=== PATIENT | female | born 1990 | race Caucasian/White ===

== ENCOUNTER 2020-04-28 14:50 | Emergency (ER) | payer MEDICAID ==
[~2020-04-28] VITALS: Ht 162.6 cm; Wt 90.0 kg
[2020-04-28 14:54] VITALS: BP 113/79
[2020-04-28] MEDS: ACETAMINOPHEN 325MG TABLET PO STA (15:59)
[2020-04-28 16:06] LABS: CLARITY URINE TURBID (CLEAR); COLOR URINE RED (YELLOW); KETONES URINE TRACE (NEGATIVE); LEUKOCYTE ESTERASE URINE 3+ (NEGATIVE); NITRITE URINE POSITIVE (NEGATIVE); OCCULT BLOOD URINE 3+ (NEGATIVE); PROTEIN URINE 2+ (NEGATIVE); SPECIFIC GRAVITY URINE 1.016 (1.005-1.030)
[2020-04-28 16:08] LABS: BASOPHILS % 0.7 % (0.0-2.0); EOSINOPHILS % 0.6 % (0.0-5.0); HEMATOCRIT. 35.9 % (36.0-48.0); HEMOGLOBIN. 12.1 g/dL (12.0-16.0); LYMPHOCYTES % 21.7 % (20.0-50.0); MEAN CORPUSCULAR HEMOGLOBIN 30.2 pg (28.0-32.0); MEAN CORPUSCULAR VOLUME 89.4 fL (81.0-99.0); MONOCYTES % 9.3 % (2.0-8.0); NEUTROPHILS % 67.7 % (40.0-76.0); PLATELET 230 x1000/uL (130-400); RED BLOOD CELL COUNT 4.01 mill/uL (4.2-5.4); RED CELL DISTRIBUTION WIDTH 13.9 % (11.6-14.6)
[2020-04-28 16:25] LABS: CHLORIDE 105 mEq/L (98-107)
[2020-04-28 16:37] LABS: B-HCG QUANTITATIVE < 1 mIU/mL (<3)
[2020-04-28] MEDS ORDERED: IBUP-2029 MT (17:12)
[2020-04-28] MEDS ORDERED: NITR-87 MT (17:17)
[2020-04-28] MEDS ORDERED: TRAMADOL 50MG TABLET PO ONE (18:00)
== END 2020-04-28 18:04 | disposition home or self-care (01) ==
LOC: ER 14:50
DX: N93.8 Other specified abnormal uterine and vaginal bleeding (principal); N39.0 Urinary tract infection, site not specified; R10.2 Pelvic and perineal pain
CPT/HCPCS: 36415; 76830; 76856; 80053; 81003; 81025; 84702; 85025; 86850; 86900; 87077; 87186; 93005; 99285

== ENCOUNTER 2020-06-23 14:06 | Emergency (ER) | payer SELFPAY ==
[~2020-06-23] VITALS: Ht 162.6 cm; Wt 91.0 kg
[~2020-06-23 14:06] MED LIST: IBUP-2029 MT; NITR-87 MT
[2020-06-23] MEDS ORDERED: IBUPROFEN 600MG TABLET PO ONE (16:15)
[2020-06-23] MEDS ORDERED: IBUP-2029 MT (16:42)
[2020-06-23 16:52] VITALS: BP 124/88
== END 2020-06-23 17:15 | disposition home or self-care (01) ==
LOC: ER 14:06
DX: S63.611A Unspecified sprain of left index finger, initial encounter (principal); S63.602A Unspecified sprain of left thumb, initial encounter; W22.8XXA Striking against or struck by other objects, initial encounter; Y93.89 Activity, other specified; Y92.018 Other place in single-family (private) house as the place of occurrence of the external cause
CPT/HCPCS: 73130; 81025; 99283

== ENCOUNTER 2021-05-15 21:04 | Inpatient (IN) | payer MEDICAID ==
[~2021-05-15] VITALS: Ht 162.6 cm; Wt 97.5 kg
[2021-05-15] MEDS ORDERED: MORPHINE SULFATE 4 MG/ML CPJ (NOT FOR IM USE) IV STA (22:26)
[2021-05-15] MEDS ORDERED: ONDANSETRON HCL 4MG/2ML INJ IV STA (22:26)
[2021-05-15] MEDS ORDERED: SODIUM CHLORIDE 0.9% 1,000 ML IV ONE (22:30)
[2021-05-16 00:26] LABS: BASOPHILS % 0.4 % (0.0-2.0); HEMATOCRIT. 37.1 % (36.0-48.0); HEMOGLOBIN. 12.4 g/dL (12.0-16.0); MEAN CORPUSCULAR HEMOGLOBIN 28.9 pg (28.0-32.0); MEAN CORPUSCULAR VOLUME 86.6 fL (81.0-99.0); MEAN PLATELET VOLUME 9.1 fl (7.4-10.4); MONOCYTES % 5.2 % (2.0-8.0); NEUTROPHILS % 81.4 % (40.0-76.0); PLATELET 248 x1000/uL (130-400); RED BLOOD CELL COUNT 4.28 mill/uL (4.2-5.4); RED CELL DISTRIBUTION WIDTH 13.7 % (11.6-14.6)
[2021-05-16 00:31] LABS: CLARITY URINE CLOUDY (CLEAR); COLOR URINE YELLOW (YELLOW); KETONES URINE NEGATIVE (NEGATIVE); LEUKOCYTE ESTERASE URINE 3+ (NEGATIVE); NITRITE URINE NEGATIVE (NEGATIVE); OCCULT BLOOD URINE NEGATIVE (NEGATIVE); PROTEIN URINE TRACE (NEGATIVE); SPECIFIC GRAVITY URINE 1.021 (1.005-1.030)
[2021-05-16 00:34] LABS: CHLORIDE 104 mEq/L (98-107)
[2021-05-16] MEDS ORDERED: KETOROLAC 30MG/ML VIAL IV ONE (00:45)
[2021-05-16 00:57] LABS: HCG SCREEN NEGATIVE
[2021-05-16] MEDS ORDERED: CEFTRIAXONE 1 G PREMIX 50 ML IV ONE (02:00)
[2021-05-16] MEDS ORDERED: MORPHINE SULFATE 4 MG/ML CPJ (NOT FOR IM USE) IV ONE (02:15)
[2021-05-16] MEDS ORDERED: IOHEXOL-300 100 ML BOTTLE ONE (02:40)
[2021-05-16] MEDS ORDERED: MORPHINE SULFATE 2 MG/ML CPJ (NOT FOR IM USE) IV ONE (04:15)
[2021-05-16] MEDS ORDERED: SKIN ADHESIVE 0.7 GM EA TOP ONE (08:00)
[2021-05-16] MEDS ORDERED: BUPIVACAINE HCL 0.5% (5MG/ML) 50ML ONE (08:00)
[2021-05-16] MEDS ORDERED: MORPHINE SULFATE 2 MG/ML CPJ (NOT FOR IM USE) IV NR (08:45)
[2021-05-16] MEDS ORDERED: MORPHINE SULFATE 2 MG/ML CPJ (NOT FOR IM USE) IV PRN (09:30)
[2021-05-16] MEDS ORDERED: SUCCINYLCHOLINE CHLORIDE 200MG/10ML IV ONE (09:37)
[2021-05-16] MEDS ORDERED: MIDAZOLAM HCL 2 MG/2 ML VIAL ONE (09:37)
[2021-05-16] MEDS ORDERED: FENTANYL CITRATE/PF 50MCG/ML 2ML VIAL ONE (09:37)
[2021-05-16] MEDS ORDERED: PROPOFOL 200MG/20ML VIAL IV ONE (09:37)
[2021-05-16] MEDS ORDERED: LIDOCAINE HCL/PF 1% 10 MG/ML 5ML VIAL ONE (09:37)
[2021-05-16] MEDS ORDERED: ROCURONIUM BROMIDE 10MG/ML VIAL 5ML IV ONE (09:38)
[2021-05-16] MEDS ORDERED: CEFAZOLIN SODIUM 1000MG/VIAL ONE (10:19)
[2021-05-16] MEDS ORDERED: GLYCOPYRROLATE 0.2 MG/ML 2ML VIAL ONE (10:35)
[2021-05-16] MEDS ORDERED: NEOSTIGMINE METHYLSULFATE 1MG/ML 10 ML VIAL ONE (10:35)
[2021-05-16] MEDS ORDERED: METOCLOPRAMIDE HCL 10MG/2ML VIAL ONE (10:36)
[2021-05-16] MEDS ORDERED: ONDANSETRON HCL 4MG/2ML INJ ONE (10:36)
[2021-05-16] MEDS ORDERED: KETOROLAC 30MG/ML VIAL ONE (10:40)
[2021-05-16] MEDS ORDERED: NITR-87 MT (10:51)
[2021-05-16] MEDS ORDERED: ONDANSETRON HCL 4MG/2ML INJ IV PRN ×2 (11:00→22:39)
[2021-05-16] MEDS ORDERED: HYDROMORPHONE HCL/PF 2MG/ML CPJ IV PRN (11:00)
[2021-05-16 14:52] LABS: BG BASE EXCESS -2.5 mmol/L (-2.0-2.0); BG CARBOXYHEMOGLOBIN 0.3 % (0.5-1.5); BG DEOXYHEMOGLOBIN 6.2 % (0.0-5.0); BG FRACTION INSPIRED OXYGEN 28; BG METHEMOGLOBIN 0.1 % (0.0-1.5); BG OXYGEN SATURATION 93.8 % (92.0-98.5); BG OXYHEMOGLOBIN 93.4 % (94.0-97.0); BG PCO2 42.8 mmHg (35.0-45.0); BG PH 7.349 (7.350-7.450); BG PO2 72.9 mmHg (75.0-100.0); BG SAMPLE SITE RIGHT RADIAL; BG TOTAL HEMOGLOBIN 10.5 g/dL (12.0-18.0); BG VENT MODE NASAL CANNULA
[2021-05-16 15:23] LABS: BASOPHILS % 0.1 % (0.0-2.0); HEMATOCRIT. 29.2 % (36.0-48.0); HEMOGLOBIN. 9.9 g/dL (12.0-16.0); LYMPHOCYTES % 10.9 % (20.0-50.0); MEAN CORPUSCULAR HEMOGLOBIN 29.7 pg (28.0-32.0); MEAN CORPUSCULAR VOLUME 87.5 fL (81.0-99.0); MEAN PLATELET VOLUME 8.9 fl (7.4-10.4); MONOCYTES % 5.6 % (2.0-8.0); NEUTROPHILS % 83.4 % (40.0-76.0); PLATELET 185 x1000/uL (130-400); RED BLOOD CELL COUNT 3.33 mill/uL (4.2-5.4); RED CELL DISTRIBUTION WIDTH 13.8 % (11.6-14.6)
[2021-05-16 15:28] LABS: CHLORIDE 110 mEq/L (98-107)
[2021-05-16] MEDS ORDERED: CALCIUM CHLORIDE 1GM/10ML SYR IV NR (15:55)
[2021-05-16] MEDS ORDERED: MAGNESIUM 2 G PREMIX 50 ML IV NR (16:30)
[2021-05-16 20:00] VITALS: BP 115/72
[2021-05-16] MEDS: MORPHINE SULFATE 2 MG/ML CPJ (NOT FOR IM USE) IV PRN (20:43)
[2021-05-16] MEDS: DEXT 5%/0.45% NACL KCL 20MEQ/L 1,000 ML IV SCH (21:56)
[2021-05-16] MEDS ORDERED: CEFTRIAXONE 1,000 MG in DEXTROSE 5% WATER 50 ML IV SCH (22:00)
[2021-05-16] MEDS ORDERED: ACETAMINOPHEN 325MG TABLET PO PRN (22:39)
[2021-05-17] VITALS: BP 93/50
[2021-05-17] MEDS: MORPHINE SULFATE 2 MG/ML CPJ (NOT FOR IM USE) IV PRN ×3 (00:23→08:54)
[2021-05-17 04:00] VITALS: BP 104/57
[2021-05-17] MEDS ORDERED: NALOXONE HCL 0.4MG/ML VIAL IV PRN (06:30)
[2021-05-17] MEDS: DEXT 5%/0.45% NACL KCL 20MEQ/L 1,000 ML IV SCH ×2 (06:41→15:45)
[2021-05-17 07:52] VITALS: BP 111/60
[2021-05-17 12:00] VITALS: BP 98/55
[2021-05-17] MEDS ORDERED: HYDR-4001 MT (12:00)
[2021-05-17] MEDS: HYDROCODONE/ACETAMINOPHEN 5/325MG TABLET PO PRN ×2 (12:48→18:31)
[2021-05-17 16:00] VITALS: BP 106/61
[2021-05-17 18:38] VITALS: BP 106/61
== END 2021-05-17 19:35 | disposition home or self-care (01) | DRG 234 ==
LOC: ER 21:04 → 4WST 05-16 09:24 → ORIP 05-16 09:24 → UNDOADMIN 05-16 09:24 → 6WST 05-16 19:15
PROVIDERS: ATTEND Internal Medicine
PROC: 0DTJ4ZZ Resection of Appendix, Percutaneous Endoscopic Approach (ICD-10-PCS; principal; 2021-05-16)
DX: K35.891 Other acute appendicitis without perforation, with gangrene (principal); N39.0 Urinary tract infection, site not specified; Z20.822 Contact with and (suspected) exposure to COVID-19; Z79.1 Long term (current) use of non-steroidal anti-inflammatories (NSAID); Z79.899 Other long term (current) drug therapy
CPT/HCPCS: 36415; 36600; 74177; 76705; 80048; 80053; 81003; 82375; 82805; 82962; 83735; 84703; 85025; 87426; 88304; 99285; J0330; J0690; J0696; J1170; J1885; J2250; J2270; J2405; J2704; J2710; J2765; J3010; J3475; J3490; J7030; J7060; Q9967